=== PATIENT | male | born 1970 | race Caucasian/White ===

== ENCOUNTER 2019-04-23 11:08 | Inpatient (IN) | payer OTHER ==
[~2019-04-23] VITALS: Ht 190.5 cm; Wt 93.9 kg
[2019-04-23 11:30] VITALS: Ht 190.5 cm; Wt 93.9 kg
[2019-04-23 13:45] LABS: BASOPHIL % 0.8 % (0-2); PLATELET COUNT 209 x10^3mcL (130-400)
[2019-04-23 13:49] LABS: RED CELL DISTRIBUTION WIDTH 15.1 % (11.5-14.5)
[2019-04-23 14:26] LABS: CALCIUM 8.9 mg/dL (8.5-10.1); CARBON DIOXIDE 24.1 mmol/L (21-32); CHLORIDE SERUM 99 mmol/L (98-107); CREATININE SERUM 1.2 mg/dL (0.7-1.3); GFR1 > 60 mL/min; GLUCOSE SERUM 90 mg/dL (74-106); POTASSIUM SERUM 4.2 mmol/L (3.5-5.1); SODIUM SERUM 132 mmol/L (136-145)
[2019-04-23 14:31] LABS: ALBUMIN 3.1 g/dL (3.4-5.0); ALKALINE PHOSPHATASE 113 U/L (46-116); ALT/SGPT 16 U/L (16-63); AST/SGOT 32 U/L (15-37); BILIRUBIN TOTAL 0.5 mg/dL (0.20-1.00); TOTAL PROTEIN, SERUM 8.2 g/dL (6.4-8.2)
[2019-04-23 14:38] LABS: UA SPECIFIC GRAVITY >=1.030 (1.005-1.035); microscopic required? YES; urine erythrocyte NEGATIVE (NEGATIVE)
[2019-04-23 15:24] LABS: CALCIUM 8.5 mg/dL (8.5-10.1); CHOLESTEROL 123 mg/dL (<200); HDL CHOLESTEROL 24 mg/dL (40-60); LIPASE 133 IU/L (73-393); T4(THYROXINE) 8.6 ug/dL (4.7-13.3)
[2019-04-23 16:01] LABS: CHOLESTEROL/HDL RATIO 5.3
[2019-04-23 16:07] LABS: T3 TOTAL 0.97 ng/mL
[2019-04-23 16:20] LABS: FREE T4 1.12 ng/dL (0.76-1.46); FREE THYROXINE INDEX 3.3 ug/dL (1.4-4.5); T4(THYROXINE) 9.7 ug/dL (4.7-13.3)
[2019-04-23 17:05] VITALS: BP 109/63
[2019-04-23 17:38] VITALS: BP 126/75
[2019-04-23 19:56] VITALS: BP 117/66
[2019-04-24 00:06] LABS: AMPHETAMINE QUAL UR NONE DETECTED (See below)
[2019-04-24 05:21] VITALS: BP 109/65
[2019-04-24 06:50] LABS: BASOPHIL % 0.7 % (0-2); PLATELET COUNT 169 x10^3mcL (130-400)
[2019-04-24 07:05] LABS: CARBON DIOXIDE 18.3 mmol/L (21-32); CHLORIDE SERUM 104 mmol/L (98-107); GFR1 > 60 mL/min; GLUCOSE SERUM 80 mg/dL (74-106); PHOSPHOROUS 3.1 mg/dL (2.5-4.9); POTASSIUM SERUM 3.8 mmol/L (3.5-5.1); SODIUM SERUM 137 mmol/L (136-145)
[2019-04-24 07:13] LABS: RED CELL DISTRIBUTION WIDTH 15.2 % (11.5-14.5)
[2019-04-24 07:39] VITALS: BP 111/68
[2019-04-24 11:44] VITALS: BP 113/66
[2019-04-24 16:37] VITALS: BP 111/68
[2019-04-24] MEDS ORDERED: REMERON30 MG PO (17:19)
== END 2019-04-24 18:40 | disposition home or self-care (01) | DRG 893 ==
LOC: ED 11:08 → MU 15:27
PROVIDERS: Emergency Medicine; ADMIT Family Medicine
DX: B20 Human immunodeficiency virus [HIV] disease (principal); E43 Unspecified severe protein-calorie malnutrition; E87.1 Hypo-osmolality and hyponatremia; D64.9 Anemia, unspecified; E11.9 Type 2 diabetes mellitus without complications; E86.0 Dehydration; Z83.3 Family history of diabetes mellitus; Z82.49 Family history of ischemic heart disease and other diseases of the circulatory system; Z68.25 Body mass index [BMI] 25.0-25.9, adult; R19.7 Diarrhea, unspecified
CPT/HCPCS: 82962; 83880; 84439; 87046; 87046-59; 87804; 97116-GP; G0378; G0480; J2405; J7030

== ENCOUNTER 2019-04-28 06:42 | Inpatient (IN) | payer OTHER ==
[~2019-04-28] VITALS: Ht 190.5 cm; Wt 89.0 kg
[~2019-04-28 06:42] MED LIST: REMERON30 MG PO
[2019-04-28 06:58] VITALS: Ht 190.5 cm; Wt 89.0 kg
[2019-04-28 08:13] LABS: CALCIUM 8.2 mg/dL (8.5-10.1); CARBON DIOXIDE 21.1 mmol/L (21-32); CHLORIDE SERUM 102 mmol/L (98-107); GFR1 > 60 mL/min; GLUCOSE SERUM 99 mg/dL (74-106); POTASSIUM SERUM 3.7 mmol/L (3.5-5.1); SODIUM SERUM 136 mmol/L (136-145)
[2019-04-28 08:14] LABS: PLATELET COUNT 216 x10^3mcL (130-400)
[2019-04-28 08:18] LABS: ALKALINE PHOSPHATASE 89 U/L (46-116); AST/SGOT 55 U/L (15-37); BILIRUBIN TOTAL 0.48 mg/dL (0.20-1.00); TOTAL PROTEIN, SERUM 6.9 g/dL (6.4-8.2)
[2019-04-28 08:23] LABS: ALBUMIN 2.2 g/dL (3.4-5.0)
[2019-04-28 08:36] LABS: ALT/SGPT 21 U/L (16-63)
[2019-04-28 09:00] LABS: UA SPECIFIC GRAVITY 1.025 (1.005-1.035); microscopic required? YES; urine erythrocyte NEGATIVE (NEGATIVE)
[2019-04-28 09:40] LABS: RED CELL DISTRIBUTION WIDTH 15.2 % (11.5-14.5)
[2019-04-28 20:28] VITALS: BP 109/69
[2019-04-28 21:52] VITALS: BP 95/56
[2019-04-29 05:21] VITALS: BP 107/70
[2019-04-29 06:04] LABS: BASOPHIL % 0.3 % (0-2); PLATELET COUNT 204 x10^3mcL (130-400)
[2019-04-29 06:29] LABS: CALCIUM 8.5 mg/dL (8.5-10.1); CARBON DIOXIDE 21.1 mmol/L (21-32); CHLORIDE SERUM 107 mmol/L (98-107); CREATININE SERUM 0.8 mg/dL (0.7-1.3); GFR1 > 60 mL/min; GLUCOSE SERUM 183 mg/dL (74-106); SODIUM SERUM 140 mmol/L (136-145)
[2019-04-29 06:58] LABS: RED CELL DISTRIBUTION WIDTH 15.2 % (11.5-14.5)
[2019-04-29 07:57] VITALS: BP 102/62
[2019-04-29 11:37] VITALS: BP 112/71
[2019-04-29 15:35] VITALS: BP 112/65
[2019-04-29 19:26] VITALS: BP 99/72
[2019-04-30 05:11] VITALS: BP 106/57
[2019-04-30 08:35] VITALS: BP 107/59
[2019-04-30 11:30] VITALS: BP 114/63
[2019-04-30 15:53] VITALS: BP 117/64
[2019-04-30 19:43] VITALS: BP 123/69
[2019-05-01 05:34] VITALS: BP 106/58
[2019-05-01 07:21] VITALS: BP 131/70
[2019-05-01] MEDS ORDERED: TRUVADA 200 MG1 EACH PO (09:02)
[2019-05-01] MEDS ORDERED: ISENTRESS400 MG PO (09:02)
[2019-05-01] MEDS ORDERED: ZITL PO (09:09)
[2019-05-01] MEDS ORDERED: BACDS PO (09:09)
[2019-05-01 09:37] VITALS: BP 106/58
[2019-05-01 11:43] VITALS: BP 146/84
== END 2019-05-01 12:38 | disposition home or self-care (01) | DRG 137 ==
LOC: ED 06:42 → DU 11:23
PROVIDERS: Emergency Medicine; ADMIT Internal Medicine
DX: B59 Pneumocystosis (principal); J96.01 Acute respiratory failure with hypoxia; E43 Unspecified severe protein-calorie malnutrition; Z98.84 Bariatric surgery status; Z68.25 Body mass index [BMI] 25.0-25.9, adult; K21.9 Gastro-esophageal reflux disease without esophagitis; G47.30 Sleep apnea, unspecified; Z91.19 Patient's noncompliance with other medical treatment and regimen
CPT/HCPCS: 36600; 82962; 87804; 97110-GP; 97116-GP; 97530-GP; G0378; J2405; J2920; J2930; J3490; J7030; J7620; Q0092

== ENCOUNTER 2019-05-02 15:00 | Inpatient (IN) | payer OTHER ==
[~2019-05-02] VITALS: Ht 190.5 cm; Wt 100.4 kg
[~2019-05-02 15:00] MED LIST changes: +BACDS PO; +ISENTRESS400 MG PO; +TRUVADA 200 MG1 EACH PO; +ZITL PO
[2019-05-02 16:01] LABS: PLATELET COUNT 273 x10^3mcL (130-400)
[2019-05-02 16:05] LABS: RED CELL DISTRIBUTION WIDTH 15.1 % (11.5-14.5)
[2019-05-02 16:48] LABS: BAND NEUTROPHIL 0 % (0-10); BASOPHIL 0 % (0-2); MONOCYTE 1 % (0-7); SEGMENTED NEUTROPHILS 87 % (37-75); rbc morphology (normal/abnorm) ABNORMAL (NORMAL)
[2019-05-02 16:49] LABS: PLATELET MORPHOLOGY LARGE PLATELET SEEN
[2019-05-02 16:53] LABS: microscopic required? YES; urine erythrocyte NEGATIVE (NEGATIVE)
[2019-05-02 17:32] LABS: CHLORIDE SERUM 106 mmol/L (98-107); POTASSIUM SERUM 3.4 mmol/L (3.5-5.1); SODIUM SERUM 141 mmol/L (136-145)
[2019-05-02 17:33] LABS: ALBUMIN 2.2 g/dL (3.4-5.0); ALKALINE PHOSPHATASE 96 U/L (46-116); ALT/SGPT 17 U/L (16-63); AST/SGOT 57 U/L (15-37); BILIRUBIN TOTAL 0.68 mg/dL (0.20-1.00); CALCIUM 8.4 mg/dL (8.5-10.1); CARBON DIOXIDE 23.4 mmol/L (21-32); CHOLESTEROL 115 mg/dL (<200); CREATININE SERUM 1.2 mg/dL (0.7-1.3); GFR1 > 60 mL/min; GLUCOSE SERUM 120 mg/dL (74-106); HDL CHOLESTEROL 33 mg/dL (40-60); TOTAL PROTEIN, SERUM 6.7 g/dL (6.4-8.2)
[2019-05-02 17:54] VITALS: BP 90/53
[2019-05-02 20:32] VITALS: BP 110/65
[2019-05-02 21:25] LABS: AMPHETAMINE QUAL UR NEGATIVE (See below)
[2019-05-02 23:01] VITALS: BP 118/72
[2019-05-03 03:10] VITALS: BP 116/38
[2019-05-03 05:02] LABS: PLATELET COUNT 232 x10^3mcL (130-400)
[2019-05-03 05:08] LABS: RED CELL DISTRIBUTION WIDTH 14.9 % (11.5-14.5)
[2019-05-03 05:20] LABS: MONOCYTE 2 % (0-7); SEGMENTED NEUTROPHILS 90 % (37-75)
[2019-05-03 05:23] LABS: PLATELET MORPHOLOGY PLATELETS NORMAL; ovalocyte/elliptocyte 1+; rbc morphology (normal/abnorm) ABNORMAL (NORMAL)
[2019-05-03 05:34] LABS: CARBON DIOXIDE 22.1 mmol/L (21-32); CHLORIDE SERUM 106 mmol/L (98-107); GLUCOSE SERUM 121 mg/dL (74-106); POTASSIUM SERUM 3.6 mmol/L (3.5-5.1); SODIUM SERUM 138 mmol/L (136-145)
[2019-05-03 05:35] LABS: CALCIUM 7.7 mg/dL (8.5-10.1); CREATININE SERUM 1.1 mg/dL (0.7-1.3); GFR1 > 60 mL/min; MAGNESIUM 1.8 mg/dL (1.8-2.4); PHOSPHOROUS 2.1 mg/dL (2.5-4.9)
[2019-05-03 07:30] VITALS: BP 101/58
[2019-05-03 11:46] VITALS: BP 113/67
[2019-05-03 16:45] VITALS: BP 125/65
[2019-05-03 20:58] VITALS: BP 105/64
[2019-05-04 05:47] VITALS: BP 102/53
[2019-05-04 06:36] LABS: PLATELET COUNT 217 x10^3mcL (130-400)
[2019-05-04 06:43] LABS: BASOPHIL % 0 % (0-2); RED CELL DISTRIBUTION WIDTH 15.6 % (11.5-14.5)
[2019-05-04 07:30] LABS: CALCIUM 8.2 mg/dL (8.5-10.1); CARBON DIOXIDE 21.8 mmol/L (21-32); CHLORIDE SERUM 107 mmol/L (98-107); CREATININE SERUM 0.8 mg/dL (0.7-1.3); GFR1 > 60 mL/min; GLUCOSE SERUM 233 mg/dL (74-106); PHOSPHOROUS 2.6 mg/dL (2.5-4.9); POTASSIUM SERUM 4.1 mmol/L (3.5-5.1); SODIUM SERUM 139 mmol/L (136-145)
[2019-05-04 08:42] VITALS: BP 100/51
[2019-05-04 09:08] LABS: MAGNESIUM 2.4 mg/dL (1.8-2.4)
[2019-05-04 12:57] VITALS: BP 120/72
[2019-05-04 16:18] VITALS: BP 122/68
[2019-05-04 20:11] VITALS: BP 109/63
[2019-05-04 20:14] VITALS: BP 120/60
[2019-05-05 05:31] VITALS: BP 111/59
[2019-05-05 06:54] LABS: PLATELET COUNT 226 x10^3mcL (130-400)
[2019-05-05 07:07] LABS: CALCIUM 8.1 mg/dL (8.5-10.1); CARBON DIOXIDE 23.4 mmol/L (21-32); CHLORIDE SERUM 107 mmol/L (98-107); CREATININE SERUM 0.9 mg/dL (0.7-1.3); GFR1 > 60 mL/min; GLUCOSE SERUM 241 mg/dL (74-106); SODIUM SERUM 138 mmol/L (136-145)
[2019-05-05 07:22] LABS: BASOPHIL % 0 % (0-2); RED CELL DISTRIBUTION WIDTH 15.9 % (11.5-14.5)
[2019-05-05 08:22] VITALS: BP 124/64
[2019-05-05 09:59] VITALS: BP 124/64
[2019-05-05 12:02] VITALS: BP 125/63
[2019-05-05 16:07] VITALS: BP 126/64
[2019-05-05 21:28] VITALS: BP 115/59
[2019-05-06 06:12] VITALS: BP 132/69
[2019-05-06 06:35] LABS: PLATELET COUNT 224 x10^3mcL (130-400)
[2019-05-06 06:54] LABS: RED CELL DISTRIBUTION WIDTH 15.9 % (11.5-14.5)
[2019-05-06 06:56] LABS: CALCIUM 8.3 mg/dL (8.5-10.1); CARBON DIOXIDE 21.4 mmol/L (21-32); CHLORIDE SERUM 106 mmol/L (98-107); GFR1 > 60 mL/min; GLUCOSE SERUM 230 mg/dL (74-106); MAGNESIUM 2.1 mg/dL (1.8-2.4); PHOSPHOROUS 3.4 mg/dL (2.5-4.9); POTASSIUM SERUM 4.4 mmol/L (3.5-5.1); SODIUM SERUM 137 mmol/L (136-145)
[2019-05-06 08:05] VITALS: BP 133/78
[2019-05-06 11:19] LABS: BAND NEUTROPHIL 4 % (0-10); BASOPHIL 0 % (0-2); MONOCYTE 1 % (0-7); SEGMENTED NEUTROPHILS 94 % (37-75)
[2019-05-06 11:20] LABS: PLATELET MORPHOLOGY PLATELETS NORMAL; ovalocyte/elliptocyte 3+; rbc morphology (normal/abnorm) ABNORMAL (NORMAL)
[2019-05-06 12:47] VITALS: BP 134/45
[2019-05-06 17:41] VITALS: BP 120/78
[2019-05-06 21:13] VITALS: BP 117/66
[2019-05-07 05:27] VITALS: BP 98/56
[2019-05-07 06:28] LABS: PLATELET COUNT 221 x10^3mcL (130-400)
[2019-05-07 06:45] LABS: BASOPHIL % 0 % (0-2); RED CELL DISTRIBUTION WIDTH 15.4 % (11.5-14.5)
[2019-05-07 06:55] LABS: CALCIUM 8.4 mg/dL (8.5-10.1); CARBON DIOXIDE 23.4 mmol/L (21-32); CHLORIDE SERUM 104 mmol/L (98-107); GFR1 > 60 mL/min; GLUCOSE SERUM 199 mg/dL (74-106); PHOSPHOROUS 3.2 mg/dL (2.5-4.9); POTASSIUM SERUM 4.2 mmol/L (3.5-5.1); SODIUM SERUM 138 mmol/L (136-145)
[2019-05-07 06:56] LABS: MAGNESIUM 2.1 mg/dL (1.8-2.4)
[2019-05-07 09:10] VITALS: BP 105/54
[2019-05-07 12:31] VITALS: BP 128/69
[2019-05-07 17:00] VITALS: BP 121/67
[2019-05-07 21:04] VITALS: BP 111/63
[2019-05-08 05:45] VITALS: BP 119/62
[2019-05-08 07:07] LABS: BASOPHIL % 0 % (0-2); PLATELET COUNT 197 x10^3mcL (130-400); RED CELL DISTRIBUTION WIDTH 15.9 % (11.5-14.5)
[2019-05-08 07:39] LABS: CALCIUM 8.1 mg/dL (8.5-10.1); CARBON DIOXIDE 21.3 mmol/L (21-32); CHLORIDE SERUM 106 mmol/L (98-107); CREATININE SERUM 0.9 mg/dL (0.7-1.3); GFR1 > 60 mL/min; GLUCOSE SERUM 233 mg/dL (74-106); PHOSPHOROUS 3.4 mg/dL (2.5-4.9); POTASSIUM SERUM 4.3 mmol/L (3.5-5.1); SODIUM SERUM 137 mmol/L (136-145)
[2019-05-08 07:40] LABS: MAGNESIUM 2.1 mg/dL (1.8-2.4)
[2019-05-08 08:39] VITALS: BP 117/66
[2019-05-08 11:24] VITALS: BP 123/72
[2019-05-08 15:25] VITALS: BP 104/71
[2019-05-08 23:30] VITALS: BP 127/75
[2019-05-09 03:02] VITALS: BP 112/69
[2019-05-09 05:12] LABS: CALCIUM 7.7 mg/dL (8.5-10.1); CARBON DIOXIDE 24.6 mmol/L (21-32); CHLORIDE SERUM 103 mmol/L (98-107); CREATININE SERUM 0.9 mg/dL (0.7-1.3); GFR1 > 60 mL/min; GLUCOSE SERUM 233 mg/dL (74-106); PLATELET COUNT 176 x10^3mcL (130-400); POTASSIUM SERUM 4.8 mmol/L (3.5-5.1); SODIUM SERUM 135 mmol/L (136-145)
[2019-05-09 05:13] LABS: MAGNESIUM 1.9 mg/dL (1.8-2.4); PHOSPHOROUS 4.2 mg/dL (2.5-4.9)
[2019-05-09 05:15] LABS: BASOPHIL % 0 % (0-2); RED CELL DISTRIBUTION WIDTH 15.8 % (11.5-14.5)
[2019-05-09 07:39] VITALS: BP 120/68
[2019-05-09 16:25] VITALS: BP 119/74
[2019-05-09 20:22] VITALS: BP 115/68
[2019-05-10 00:33] LABS: BASOPHIL % 0.3 % (0-2); PLATELET COUNT 168 x10^3mcL (130-400); RED CELL DISTRIBUTION WIDTH 15.9 % (11.5-14.5)
[2019-05-10 01:01] LABS: CALCIUM 8.1 mg/dL (8.5-10.1); CARBON DIOXIDE 25.6 mmol/L (21-32); CHLORIDE SERUM 106 mmol/L (98-107); CREATININE SERUM 0.8 mg/dL (0.7-1.3); GFR1 > 60 mL/min; GLUCOSE SERUM 224 mg/dL (74-106); POTASSIUM SERUM 4.2 mmol/L (3.5-5.1); SODIUM SERUM 138 mmol/L (136-145)
[2019-05-10 05:51] VITALS: BP 115/65
[2019-05-10 06:14] LABS: PLATELET COUNT 148 x10^3mcL (130-400)
[2019-05-10 07:11] LABS: BASOPHIL % 0 % (0-2); RED CELL DISTRIBUTION WIDTH 16.2 % (11.5-14.5)
[2019-05-10 07:51] LABS: CALCIUM 8.1 mg/dL (8.5-10.1); CARBON DIOXIDE 22.3 mmol/L (21-32); CHLORIDE SERUM 106 mmol/L (98-107); CREATININE SERUM 0.8 mg/dL (0.7-1.3); GFR1 > 60 mL/min; GLUCOSE SERUM 229 mg/dL (74-106); POTASSIUM SERUM 4.5 mmol/L (3.5-5.1); SODIUM SERUM 138 mmol/L (136-145)
[2019-05-10 08:57] VITALS: BP 113/62
[2019-05-10 13:12] VITALS: BP 116/62
[2019-05-10 16:28] VITALS: BP 117/62
[2019-05-10 19:10] VITALS: BP 116/70
[2019-05-10 22:53] LABS: BASOPHIL % 0.8 % (0-2); PLATELET COUNT 154 x10^3mcL (130-400)
[2019-05-10 22:55] LABS: RED CELL DISTRIBUTION WIDTH 16.4 % (11.5-14.5)
[2019-05-10 22:59] LABS: CARBON DIOXIDE 24.9 mmol/L (21-32); CHLORIDE SERUM 106 mmol/L (98-107); CREATININE SERUM 0.8 mg/dL (0.7-1.3); GFR1 > 60 mL/min; GLUCOSE SERUM 206 mg/dL (74-106); POTASSIUM SERUM 4.1 mmol/L (3.5-5.1); SODIUM SERUM 137 mmol/L (136-145)
[2019-05-11 05:30] VITALS: BP 116/70
[2019-05-11 05:58] LABS: PLATELET COUNT 131 x10^3mcL (130-400)
[2019-05-11 06:05] LABS: BASOPHIL % 0 % (0-2); RED CELL DISTRIBUTION WIDTH 15.9 % (11.5-14.5)
[2019-05-11 06:58] LABS: CALCIUM 6.9 mg/dL (8.5-10.1); CARBON DIOXIDE 21.9 mmol/L (21-32); CHLORIDE SERUM 108 mmol/L (98-107); CREATININE SERUM 0.9 mg/dL (0.7-1.3); GFR1 > 60 mL/min; SODIUM SERUM 138 mmol/L (136-145)
[2019-05-11 07:08] LABS: GLUCOSE SERUM 592 mg/dL (74-106)
[2019-05-11 08:45] VITALS: BP 127/74
[2019-05-11 12:14] VITALS: BP 115/70
[2019-05-11 16:09] VITALS: BP 110/70
[2019-05-11 21:30] VITALS: BP 124/77
[2019-05-11 22:00] VITALS: BP 121/59
[2019-05-12 06:38] VITALS: BP 114/63
[2019-05-12 06:45] LABS: CALCIUM 8.8 mg/dL (8.5-10.1); CARBON DIOXIDE 22.9 mmol/L (21-32); CHLORIDE SERUM 105 mmol/L (98-107); CREATININE SERUM 0.9 mg/dL (0.7-1.3); GFR1 > 60 mL/min; GLUCOSE SERUM 207 mg/dL (74-106); MAGNESIUM 2.2 mg/dL (1.8-2.4); PHOSPHOROUS 3.8 mg/dL (2.5-4.9); POTASSIUM SERUM 5.3 mmol/L (3.5-5.1); SODIUM SERUM 136 mmol/L (136-145)
[2019-05-12 07:19] LABS: BASOPHIL % 0 % (0-2); PLATELET COUNT 122 x10^3mcL (130-400); RED CELL DISTRIBUTION WIDTH 16.5 % (11.5-14.5)
[2019-05-12 08:45] VITALS: BP 109/56
[2019-05-12 18:04] VITALS: BP 115/71
[2019-05-12 21:30] VITALS: BP 114/71
[2019-05-13 05:47] VITALS: BP 104/68
[2019-05-13 07:05] LABS: CALCIUM 7.8 mg/dL (8.5-10.1); CARBON DIOXIDE 24.5 mmol/L (21-32); CHLORIDE SERUM 101 mmol/L (98-107); CREATININE SERUM 0.9 mg/dL (0.7-1.3); GFR1 > 60 mL/min; GLUCOSE SERUM 95 mg/dL (74-106); MAGNESIUM 1.9 mg/dL (1.8-2.4); PHOSPHOROUS 2.9 mg/dL (2.5-4.9); POTASSIUM SERUM 4.8 mmol/L (3.5-5.1); SODIUM SERUM 133 mmol/L (136-145)
[2019-05-13 07:23] LABS: PLATELET COUNT 88 x10^3mcL (130-400); RED CELL DISTRIBUTION WIDTH 16.3 % (11.5-14.5)
[2019-05-13 08:15] VITALS: BP 104/68
[2019-05-13 08:48] VITALS: BP 104/67
[2019-05-13 11:59] LABS: PLATELET COUNT 69 x10^3mcL (130-400); RED CELL DISTRIBUTION WIDTH 16.5 % (11.5-14.5)
[2019-05-13 12:15] VITALS: BP 95/59
[2019-05-13 12:44] LABS: BAND NEUTROPHIL 1 % (0-10)
[2019-05-13 12:45] LABS: MONOCYTE 1 % (0-7)
[2019-05-13 12:46] LABS: SEGMENTED NEUTROPHILS 96 % (37-75)
[2019-05-13 12:48] LABS: ovalocyte/elliptocyte 2+; rbc morphology (normal/abnorm) ABNORMAL (NORMAL); tear drop cell (dacryocyte) 1+
[2019-05-13 12:49] LABS: PLATELET MORPHOLOGY LARGE PLATELET SEEN
[2019-05-13 12:52] LABS: BAND NEUTROPHIL 2 % (0-10); MONOCYTE 1 % (0-7); SEGMENTED NEUTROPHILS 96 % (37-75); rbc morphology (normal/abnorm) ABNORMAL (NORMAL)
[2019-05-13 12:53] LABS: ovalocyte/elliptocyte 1+; tear drop cell (dacryocyte) 1+
[2019-05-13 15:54] VITALS: BP 108/63
[2019-05-13 19:40] VITALS: BP 109/48
[2019-05-14 00:03] VITALS: BP 97/51
[2019-05-14 03:14] VITALS: BP 96/59
[2019-05-14 05:41] LABS: BASOPHIL % 0 % (0-2); PLATELET COUNT 52 x10^3mcL (130-400); RED CELL DISTRIBUTION WIDTH 16.9 % (11.5-14.5)
[2019-05-14 05:48] LABS: CALCIUM 7.4 mg/dL (8.5-10.1); CARBON DIOXIDE 20.6 mmol/L (21-32); CHLORIDE SERUM 106 mmol/L (98-107); CREATININE SERUM 0.9 mg/dL (0.7-1.3); GFR1 > 60 mL/min; GLUCOSE SERUM 144 mg/dL (74-106); MAGNESIUM 1.9 mg/dL (1.8-2.4); PHOSPHOROUS 3.2 mg/dL (2.5-4.9); POTASSIUM SERUM 4.3 mmol/L (3.5-5.1); SODIUM SERUM 136 mmol/L (136-145)
[2019-05-14 08:00] VITALS: BP 99/52
[2019-05-14 12:00] VITALS: BP 102/64
[2019-05-14 16:50] VITALS: BP 112/69
[2019-05-14 20:26] VITALS: BP 97/59
[2019-05-15 04:40] VITALS: BP 100/65
[2019-05-15 07:41] LABS: CALCIUM 7.3 mg/dL (8.5-10.1); CARBON DIOXIDE 22.4 mmol/L (21-32); CHLORIDE SERUM 101 mmol/L (98-107); CREATININE SERUM 0.7 mg/dL (0.7-1.3); GFR1 > 60 mL/min; GLUCOSE SERUM 106 mg/dL (74-106); MAGNESIUM 1.9 mg/dL (1.8-2.4); PHOSPHOROUS 1.8 mg/dL (2.5-4.9); SODIUM SERUM 131 mmol/L (136-145)
[2019-05-15 08:27] VITALS: BP 129/76
[2019-05-15 08:55] LABS: BASOPHIL % 0 % (0-2); PLATELET COUNT 50 x10^3mcL (130-400); RED CELL DISTRIBUTION WIDTH 17.1 % (11.5-14.5)
[2019-05-15 12:42] VITALS: BP 104/63
[2019-05-15 17:42] VITALS: BP 106/72
[2019-05-15 21:11] VITALS: BP 110/69
[2019-05-16 06:08] VITALS: BP 102/67
[2019-05-16 07:06] LABS: BASOPHIL % 0 % (0-2)
[2019-05-16 08:14] LABS: CALCIUM 7.6 mg/dL (8.5-10.1); CARBON DIOXIDE 25.1 mmol/L (21-32); CHLORIDE SERUM 102 mmol/L (98-107); CREATININE SERUM 0.7 mg/dL (0.7-1.3); GFR1 > 60 mL/min; GLUCOSE SERUM 113 mg/dL (74-106); MAGNESIUM 1.7 mg/dL (1.8-2.4); PHOSPHOROUS 2.2 mg/dL (2.5-4.9); SODIUM SERUM 132 mmol/L (136-145)
[2019-05-16 09:00] VITALS: BP 106/70
[2019-05-16 11:12] LABS: PLATELET COUNT 39 x10^3mcL (130-400)
[2019-05-16 12:07] VITALS: BP 97/63
[2019-05-16 16:11] VITALS: BP 108/71
[2019-05-16 20:04] VITALS: BP 95/57
[2019-05-17 04:57] VITALS: BP 109/60
[2019-05-17 06:52] LABS: CALCIUM 7.3 mg/dL (8.5-10.1); CARBON DIOXIDE 26.4 mmol/L (21-32); CHLORIDE SERUM 103 mmol/L (98-107); CREATININE SERUM 0.7 mg/dL (0.7-1.3); GFR1 > 60 mL/min; GLUCOSE SERUM 110 mg/dL (74-106); MAGNESIUM 1.8 mg/dL (1.8-2.4); PHOSPHOROUS 2.3 mg/dL (2.5-4.9); POTASSIUM SERUM 3.7 mmol/L (3.5-5.1); SODIUM SERUM 136 mmol/L (136-145)
[2019-05-17 06:54] LABS: RED CELL DISTRIBUTION WIDTH 17.3 % (11.5-14.5)
[2019-05-17 07:30] LABS: BAND NEUTROPHIL 0 % (0-10); MONOCYTE 1 % (0-7); SEGMENTED NEUTROPHILS 93 % (37-75)
[2019-05-17 07:31] LABS: BASOPHIL 0 % (0-2); rbc morphology (normal/abnorm) ABNORMAL (NORMAL)
[2019-05-17 08:43] VITALS: BP 108/64
[2019-05-17 09:06] LABS: PLATELET COUNT 38 x10^3mcL (130-400)
[2019-05-17 12:46] VITALS: BP 114/69
[2019-05-17 17:43] VITALS: BP 149/86
[2019-05-17 20:35] VITALS: BP 104/72
[2019-05-18 05:14] VITALS: BP 114/78
[2019-05-18 08:31] LABS: CALCIUM 7.1 mg/dL (8.5-10.1); CARBON DIOXIDE 25.6 mmol/L (21-32); CHLORIDE SERUM 104 mmol/L (98-107); CREATININE SERUM 0.6 mg/dL (0.7-1.3); GFR1 > 60 mL/min; GLUCOSE SERUM 138 mg/dL (74-106); MAGNESIUM 1.8 mg/dL (1.8-2.4); PHOSPHOROUS 1.9 mg/dL (2.5-4.9); POTASSIUM SERUM 4.1 mmol/L (3.5-5.1); SODIUM SERUM 135 mmol/L (136-145)
[2019-05-18 08:44] LABS: RED CELL DISTRIBUTION WIDTH 17.1 % (11.5-14.5)
[2019-05-18 09:06] VITALS: BP 124/73
[2019-05-18 13:14] VITALS: BP 114/73
[2019-05-18 13:59] LABS: BAND NEUTROPHIL 0 % (0-10); BASOPHIL 0 % (0-2); MONOCYTE 1 % (0-7); SEGMENTED NEUTROPHILS 99 % (37-75)
[2019-05-18 14:00] LABS: rbc morphology (normal/abnorm) ABNORMAL (NORMAL)
[2019-05-18 14:01] LABS: PLATELET MORPHOLOGY PLATELETS DECREASED
[2019-05-18 14:07] LABS: PLATELET COUNT 43 x10^3mcL (130-400)
[2019-05-18 17:32] VITALS: BP 142/75
[2019-05-18 20:43] VITALS: BP 118/62
[2019-05-19 04:58] VITALS: BP 113/73
[2019-05-19 07:22] LABS: CALCIUM 6.8 mg/dL (8.5-10.1); CHLORIDE SERUM 104 mmol/L (98-107); CREATININE SERUM 0.5 mg/dL (0.7-1.3); GFR1 > 60 mL/min; GLUCOSE SERUM 91 mg/dL (74-106); MAGNESIUM 1.7 mg/dL (1.8-2.4); PHOSPHOROUS 1.8 mg/dL (2.5-4.9); POTASSIUM SERUM 3.7 mmol/L (3.5-5.1); SODIUM SERUM 136 mmol/L (136-145)
[2019-05-19 07:53] LABS: RED CELL DISTRIBUTION WIDTH 18.3 % (11.5-14.5)
[2019-05-19 07:56] LABS: PLATELET COUNT 30 x10^3mcL (130-400)
[2019-05-19 08:37] VITALS: BP 138/81
[2019-05-19 09:38] LABS: BAND NEUTROPHIL 0 % (0-10); MONOCYTE 2 % (0-7); SEGMENTED NEUTROPHILS 91 % (37-75)
[2019-05-19 09:39] LABS: PLATELET MORPHOLOGY PLATELETS DECREASED
[2019-05-19 09:41] LABS: ovalocyte/elliptocyte 1+; rbc morphology (normal/abnorm) ABNORMAL (NORMAL)
[2019-05-19 12:09] VITALS: BP 108/69
[2019-05-19 17:11] VITALS: BP 93/69
[2019-05-19 19:30] VITALS: BP 113/80
[2019-05-19 23:19] VITALS: BP 103/70
[2019-05-20] VITALS (12 sets, daily range): BP systolic 102–190; BP diastolic 69–93
[2019-05-20 05:28] LABS: CALCIUM 7.5 mg/dL (8.5-10.1); CARBON DIOXIDE 24.9 mmol/L (21-32); CHLORIDE SERUM 104 mmol/L (98-107); CREATININE SERUM 0.5 mg/dL (0.7-1.3); GFR1 > 60 mL/min; GLUCOSE SERUM 167 mg/dL (74-106); MAGNESIUM 1.9 mg/dL (1.8-2.4); PHOSPHOROUS 2.9 mg/dL (2.5-4.9); POTASSIUM SERUM 4.5 mmol/L (3.5-5.1); SODIUM SERUM 136 mmol/L (136-145)
[2019-05-20 05:46] LABS: BASOPHIL % 0 % (0-2); RED CELL DISTRIBUTION WIDTH 18.3 % (11.5-14.5)
[2019-05-20 05:58] LABS: PLATELET COUNT 30 x10^3mcL (130-400)
[2019-05-21] VITALS (16 sets, daily range): BP systolic 106–137; BP diastolic 64–89
[2019-05-21 05:03] LABS: CALCIUM 7.6 mg/dL (8.5-10.1); CARBON DIOXIDE 25.3 mmol/L (21-32); CHLORIDE SERUM 103 mmol/L (98-107); CREATININE SERUM 0.6 mg/dL (0.7-1.3); GFR1 > 60 mL/min; GLUCOSE SERUM 138 mg/dL (74-106); MAGNESIUM 1.8 mg/dL (1.8-2.4); PHOSPHOROUS 3.2 mg/dL (2.5-4.9); POTASSIUM SERUM 4.6 mmol/L (3.5-5.1); SODIUM SERUM 134 mmol/L (136-145)
[2019-05-21 05:16] LABS: BASOPHIL % 0 % (0-2); RED CELL DISTRIBUTION WIDTH 19.3 % (11.5-14.5)
[2019-05-21 05:19] LABS: PLATELET COUNT 21 x10^3mcL (130-400)
[2019-05-22] VITALS (12 sets, daily range): BP systolic 94–210; BP diastolic 61–95
[2019-05-22 05:26] LABS: CALCIUM 7.7 mg/dL (8.5-10.1); CARBON DIOXIDE 26.9 mmol/L (21-32); CHLORIDE SERUM 103 mmol/L (98-107); CREATININE SERUM 0.6 mg/dL (0.7-1.3); GFR1 > 60 mL/min; GLUCOSE SERUM 192 mg/dL (74-106); MAGNESIUM 1.8 mg/dL (1.8-2.4); PHOSPHOROUS 2.9 mg/dL (2.5-4.9); POTASSIUM SERUM 4.6 mmol/L (3.5-5.1); SODIUM SERUM 134 mmol/L (136-145)
[2019-05-22 05:52] LABS: PLATELET COUNT 15 x10^3mcL (130-400)
[2019-05-22 05:59] LABS: BAND NEUTROPHIL 2 % (0-10); MONOCYTE 9 % (0-7); SEGMENTED NEUTROPHILS 81 % (37-75)
[2019-05-22 06:00] LABS: rbc morphology (normal/abnorm) ABNORMAL (NORMAL)
[2019-05-22 06:01] LABS: PLATELET MORPHOLOGY PLATELETS DECREASED
[2019-05-22 06:03] LABS: ovalocyte/elliptocyte 2+
[2019-05-23] VITALS (16 sets, daily range): BP systolic 85–115; BP diastolic 54–67
[2019-05-23 05:35] LABS: BASOPHIL % 0 % (0-2); RED CELL DISTRIBUTION WIDTH 19.3 % (11.5-14.5)
[2019-05-23 05:38] LABS: CALCIUM 7.3 mg/dL (8.5-10.1); CARBON DIOXIDE 29.2 mmol/L (21-32); CHLORIDE SERUM 103 mmol/L (98-107); CREATININE SERUM 0.6 mg/dL (0.7-1.3); GFR1 > 60 mL/min; GLUCOSE SERUM 182 mg/dL (74-106); MAGNESIUM 1.9 mg/dL (1.8-2.4); PHOSPHOROUS 3.9 mg/dL (2.5-4.9); PLATELET COUNT 27 x10^3mcL (130-400); POTASSIUM SERUM 4.8 mmol/L (3.5-5.1); SODIUM SERUM 134 mmol/L (136-145)
[2019-05-24] VITALS (18 sets, daily range): BP systolic 94–136; BP diastolic 52–72
[2019-05-24 05:38] LABS: RED CELL DISTRIBUTION WIDTH 18.8 % (11.5-14.5)
[2019-05-24 05:49] LABS: BAND NEUTROPHIL 2 % (0-10); MONOCYTE 4 % (0-7); SEGMENTED NEUTROPHILS 71 % (37-75)
[2019-05-24 05:50] LABS: rbc morphology (normal/abnorm) ABNORMAL (NORMAL)
[2019-05-24 05:51] LABS: PLATELET MORPHOLOGY PLATELETS DECREASED; ovalocyte/elliptocyte 2+
[2019-05-24 06:01] LABS: PLATELET COUNT 24 x10^3mcL (130-400)
[2019-05-24 06:31] LABS: CALCIUM 7.1 mg/dL (8.5-10.1); CARBON DIOXIDE 29.7 mmol/L (21-32); CHLORIDE SERUM 102 mmol/L (98-107); CREATININE SERUM 0.5 mg/dL (0.7-1.3); GFR1 > 60 mL/min; GLUCOSE SERUM 290 mg/dL (74-106); MAGNESIUM 1.8 mg/dL (1.8-2.4); PHOSPHOROUS 2.5 mg/dL (2.5-4.9); POTASSIUM SERUM 4.8 mmol/L (3.5-5.1); SODIUM SERUM 135 mmol/L (136-145)
[2019-05-25] VITALS (17 sets, daily range): BP systolic 88–138; BP diastolic 26–80
[2019-05-25 06:16] LABS: RED CELL DISTRIBUTION WIDTH 19.4 % (11.5-14.5)
[2019-05-25 06:23] LABS: CHLORIDE SERUM 101 mmol/L (98-107); CREATININE SERUM 0.5 mg/dL (0.7-1.3); GFR1 > 60 mL/min; GLUCOSE SERUM 214 mg/dL (74-106); MAGNESIUM 1.9 mg/dL (1.8-2.4); PHOSPHOROUS 2.4 mg/dL (2.5-4.9); POTASSIUM SERUM 4.6 mmol/L (3.5-5.1); SODIUM SERUM 137 mmol/L (136-145)
[2019-05-25 06:48] LABS: PLATELET COUNT 31 x10^3mcL (130-400)
[2019-05-25 14:07] LABS: BAND NEUTROPHIL 16 % (0-10); BASOPHIL 0 % (0-2); MONOCYTE 16 % (0-7); SEGMENTED NEUTROPHILS 59 % (37-75)
[2019-05-25 14:09] LABS: PLATELET MORPHOLOGY PLATELETS DECREASED; rbc morphology (normal/abnorm) ABNORMAL (NORMAL)
[2019-05-25 15:31] LABS: RED CELL DISTRIBUTION WIDTH 19.4 % (11.5-14.5)
[2019-05-25 15:39] LABS: CALCIUM 7.1 mg/dL (8.5-10.1); CARBON DIOXIDE 32.6 mmol/L (21-32); CHLORIDE SERUM 101 mmol/L (98-107); CREATININE SERUM 0.5 mg/dL (0.7-1.3); GFR1 > 60 mL/min; GLUCOSE SERUM 199 mg/dL (74-106); POTASSIUM SERUM 4.9 mmol/L (3.5-5.1); SODIUM SERUM 136 mmol/L (136-145)
[2019-05-25 15:57] LABS: BAND NEUTROPHIL 4 % (0-10); BASOPHIL 0 % (0-2); MONOCYTE 4 % (0-7); PLATELET MORPHOLOGY PLATELETS DECREASED; SEGMENTED NEUTROPHILS 70 % (37-75); rbc morphology (normal/abnorm) ABNORMAL (NORMAL)
[2019-05-25 16:00] LABS: PLATELET COUNT 38 x10^3mcL (130-400)
[2019-05-26] VITALS (18 sets, daily range): BP systolic 97–121; BP diastolic 56–72
[2019-05-26 06:00] LABS: BASOPHIL % 0 % (0-2); RED CELL DISTRIBUTION WIDTH 20.1 % (11.5-14.5)
[2019-05-26 06:03] LABS: CALCIUM 7.6 mg/dL (8.5-10.1); CARBON DIOXIDE 33.8 mmol/L (21-32); CHLORIDE SERUM 98 mmol/L (98-107); CREATININE SERUM 0.6 mg/dL (0.7-1.3); GFR1 > 60 mL/min; GLUCOSE SERUM 240 mg/dL (74-106); MAGNESIUM 1.8 mg/dL (1.8-2.4); PHOSPHOROUS 2.1 mg/dL (2.5-4.9); PLATELET COUNT 46 x10^3mcL (130-400); SODIUM SERUM 134 mmol/L (136-145)
[2019-05-26 06:18] LABS: POTASSIUM SERUM 5.6 mmol/L (3.5-5.1)
[2019-05-27] VITALS (18 sets, daily range): BP systolic 89–130; BP diastolic 51–73
[2019-05-27 05:40] LABS: BASOPHIL % 0.1 % (0-2)
[2019-05-27 05:41] LABS: PLATELET COUNT 56 x10^3mcL (130-400)
[2019-05-27 05:45] LABS: CALCIUM 7.3 mg/dL (8.5-10.1); CARBON DIOXIDE 35.6 mmol/L (21-32); CHLORIDE SERUM 97 mmol/L (98-107); CREATININE SERUM 0.5 mg/dL (0.7-1.3); GFR1 > 60 mL/min; GLUCOSE SERUM 232 mg/dL (74-106); MAGNESIUM 1.8 mg/dL (1.8-2.4); PHOSPHOROUS 2.6 mg/dL (2.5-4.9); POTASSIUM SERUM 5.4 mmol/L (3.5-5.1); SODIUM SERUM 133 mmol/L (136-145)
[2019-05-28] VITALS (17 sets, daily range): BP systolic 89–134; BP diastolic 53–82; Ht 190.5 cm; Wt 100.4 kg
[2019-05-28 05:43] LABS: CALCIUM 6.9 mg/dL (8.5-10.1); CHLORIDE SERUM 98 mmol/L (98-107); CREATININE SERUM 0.7 mg/dL (0.7-1.3); GFR1 > 60 mL/min; GLUCOSE SERUM 282 mg/dL (74-106); MAGNESIUM 1.7 mg/dL (1.8-2.4); POTASSIUM SERUM 5.3 mmol/L (3.5-5.1); SODIUM SERUM 132 mmol/L (136-145)
[2019-05-28 05:46] LABS: PLATELET COUNT 53 x10^3mcL (130-400); RED CELL DISTRIBUTION WIDTH 19.5 % (11.5-14.5)
[2019-05-28 09:40] LABS: BAND NEUTROPHIL 12 % (0-10); BASOPHIL 0 % (0-2); MONOCYTE 10 % (0-7); SEGMENTED NEUTROPHILS 71 % (37-75); ovalocyte/elliptocyte 1+; rbc morphology (normal/abnorm) ABNORMAL (NORMAL)
[2019-05-28 09:41] LABS: PLATELET MORPHOLOGY GIANT PLATELET SEEN; schistocyte (helmet cell) 1+; tear drop cell (dacryocyte) 1+
[2019-05-29] VITALS (8 sets, daily range): BP systolic 86–111; BP diastolic 54–68
[2019-05-29 05:50] LABS: CALCIUM 6.8 mg/dL (8.5-10.1); CARBON DIOXIDE 33.5 mmol/L (21-32); CHLORIDE SERUM 97 mmol/L (98-107); CREATININE SERUM 0.8 mg/dL (0.7-1.3); GFR1 > 60 mL/min; GLUCOSE SERUM 270 mg/dL (74-106); MAGNESIUM 1.8 mg/dL (1.8-2.4); PHOSPHOROUS 3.3 mg/dL (2.5-4.9); SODIUM SERUM 131 mmol/L (136-145)
[2019-05-29 05:54] LABS: POTASSIUM SERUM 5.6 mmol/L (3.5-5.1)
[2019-05-29 06:32] LABS: PLATELET COUNT 65 x10^3mcL (130-400); RED CELL DISTRIBUTION WIDTH 19.5 % (11.5-14.5)
[2019-05-29 11:47] LABS: BAND NEUTROPHIL 0 % (0-10); BASOPHIL 0 % (0-2); MONOCYTE 5 % (0-7); PLATELET MORPHOLOGY PLATELETS DECREASED; SEGMENTED NEUTROPHILS 90 % (37-75)
[2019-05-29 11:48] LABS: rbc morphology (normal/abnorm) ABNORMAL (NORMAL)
== END 2019-05-29 22:32 | disposition expired | DRG 710 ==
LOC: ED 15:00 → MU 17:30 → IC 17:30 → DU 17:30 → IC 17:38 → DU 05-03 16:43 → MU 05-06 15:06 → DU 05-08 11:52 → IC 05-08 23:15 → DU 05-09 12:41 → MU 05-11 16:16 → IC 05-13 13:55 → DU 05-14 16:46 → IC 05-19 17:36 → MU 05-19 17:41 → IC 05-19 19:00
PROVIDERS: Emergency Medicine; Family Medicine; Internal Medicine; Student in an Organized Health Care Education/Training Program; Surgery; ADMIT Internal Medicine
PROC: 0BJ08ZZ Inspection of Tracheobronchial Tree, Via Natural or Artificial Opening Endoscopic (ICD-10-PCS; 2019-05-08)
PROC: 0DU607Z Supplement Stomach with Autologous Tissue Substitute, Open Approach (ICD-10-PCS; principal; 2019-05-08 07:30)
PROC: 02HV33Z Insertion of Infusion Device into Superior Vena Cava, Percutaneous Approach (ICD-10-PCS; 2019-05-12)
PROC: B548ZZA Ultrasonography of Superior Vena Cava, Guidance (ICD-10-PCS; 2019-05-12)
PROC: 5A09357 Assistance with Respiratory Ventilation, Less than 24 Consecutive Hours, Continuous Positive Airway Pressure (ICD-10-PCS; 2019-05-17)
PROC: 5A09457 Assistance with Respiratory Ventilation, 24-96 Consecutive Hours, Continuous Positive Airway Pressure (ICD-10-PCS; 2019-05-19)
PROC: 5A1955Z Respiratory Ventilation, Greater than 96 Consecutive Hours (ICD-10-PCS; 2019-05-20)
PROC: 0BH17EZ Insertion of Endotracheal Airway into Trachea, Via Natural or Artificial Opening (ICD-10-PCS; 2019-05-20)
PROC: 0B9H7ZX Drainage of Lung Lingula, Via Natural or Artificial Opening, Diagnostic (ICD-10-PCS; 2019-05-20)
PROC: 0B9D7ZX Drainage of Right Middle Lung Lobe, Via Natural or Artificial Opening, Diagnostic (ICD-10-PCS; 2019-05-20)
PROC: 30233R1 Transfusion of Nonautologous Platelets into Peripheral Vein, Percutaneous Approach (ICD-10-PCS; 2019-05-22)
PROC: 0W9B30Z Drainage of Left Pleural Cavity with Drainage Device, Percutaneous Approach (ICD-10-PCS; 2019-05-23)
PROC: 02HV33Z Insertion of Infusion Device into Superior Vena Cava, Percutaneous Approach (ICD-10-PCS; 2019-05-23)
PROC: B548ZZA Ultrasonography of Superior Vena Cava, Guidance (ICD-10-PCS; 2019-05-23)
DX: A41.9 Sepsis, unspecified organism (principal); B20 Human immunodeficiency virus [HIV] disease; J96.01 Acute respiratory failure with hypoxia; I21.A1 Myocardial infarction type 2; E43 Unspecified severe protein-calorie malnutrition; K65.0 Generalized (acute) peritonitis; K28.1 Acute gastrojejunal ulcer with perforation; B59 Pneumocystosis; J93.83 Other pneumothorax; E11.9 Type 2 diabetes mellitus without complications; D50.9 Iron deficiency anemia, unspecified; I46.9 Cardiac arrest, cause unspecified; Z66 Do not resuscitate; Z51.5 Encounter for palliative care; F17.210 Nicotine dependence, cigarettes, uncomplicated; I27.20 Pulmonary hypertension, unspecified; Z98.84 Bariatric surgery status; Z68.23 Body mass index [BMI] 23.0-23.9, adult; Z91.14 Patient's other noncompliance with medication regimen; Z83.3 Family history of diabetes mellitus; Z82.49 Family history of ischemic heart disease and other diseases of the circulatory system; Z82.3 Family history of stroke; Z78.1 Physical restraint status; Z79.899 Other long term (current) drug therapy
CPT/HCPCS: 31645; 36556; 36600; 82308; 82962; 83880; 85378; 86644; 86645; 87046; 87046-59; 87116; 87206; 87804; 97110-GP; 97116-GP; 97530-GP; A4628; C1729; C1751; C9113; G0378; J0330; J0456; J1170; J1642; J1720; J1815; J1885; J1940; J1956; J2001; J2060; J2185; J2250; J2270; J2405; J2543; J2704; J2710; J2920; J2930; J3010; J3490; J7030; J7040; J7042; J7050; J7120; J7620; J7644; P9035; Q0092; Q0163; Q9966; Q9967